=== PATIENT | male | born 1970 | race Caucasian/White ===

== ENCOUNTER 2023-04-23 15:28 | Emergency (ER) | payer OTHER, SELFPAY ==
[2023-04-23] VITALS (12 sets, daily range): BP systolic 113–143; BP diastolic 85–101; PULSE 84–100; RESP 10–84; TEMP 36.4; O2SAT 91–99; BMI 30.5
--- NOTE | 2023-04-23 16:12 | CRLHL7_ITS ---
For Patients: As a result of the Century Cures Act, medical imaging exams and procedure reports are released immediately into your electronic medical record. You may view this report before your referring provider. If you have questions, please contact your health care provider. INDICATION: Fever, shortness of breath TECHNIQUE: Chest 2 views. COMPARISON: None. FINDINGS: The lungs are symmetrically inflated and clear. The trachea is midline. The cardiac silhouette is normal. Bones and soft tissues are unremarkable. IMPRESSION: No acute cardiopulmonary findings. Dictated by Simon Forte MD @ 04/23/2023 6:12:13 PM (Electronically Signed)
--- NOTE | 2023-04-23 16:23 | ED.GENADULT ---
HPI - General Adult General Date Seen: 04/23/23 Chief complaint: Weakness Stated complaint: fever, flu like symptoms Time Seen by Provider: 04/23/23 15:59 Source: patient Mode of arrival: ambulatory Limitations: no limitations History of Present Illness HPI narrative: Patient is a 52 year old male with history of GERD and anxiety presenting to the emergency department for weakness, abdominal pain, flu-like symptoms. For yet that he saw the [facility] yesterday and tested negative for COVID/flu/RSV/strep. States the symptoms started about 21:30 2 days ago. He said since then he is having full body aches and nausea. He has not been eating or drinking anything because of the nausea. Has had some emesis but states he isn't vomiting anymore because it was nothing left in his stomach. Admits to diffuse abdominal discomfort. No previous abdominal surgeries. States he has been having watery diarrhea. Last time he was on antibiotics he states was 6 weeks ago. He did have COVID diagnosis on 03/25/2023. Denies chest pains, headache, numbness. States he has been having intermittent fevers and taking Tylenol and ibuprofen for that. Does admit to some mild shortness of breath. He also states he feels dehydrated and lightheaded. His urgent care provider from yesterday follow-up with him today and told him to come to the emergency department. Related Data Home Medications Medication Instructions Recorded Confirmed ferrous sulfate 137 mg (45 mg mg PO 03/26/23 04/22/23 iron) tablet,extended release multivitamin (Multiple Vitamins 1 tab PO QDAY 03/26/23 04/22/23 tablet) omeprazole 40 mg capsule,delayed 40 mg PO QDAY 03/26/23 04/22/23 release venlafaxine 75 mg capsule,extended 225 mg PO DAILY 03/26/23 04/22/23 release 24 hr Previous Rx's Medication Instructions Recorded fluticasone propionate 50 2 spray intranasal QDAY #16 grams 03/26/23 mcg/actuation nasal spray,suspension (Allergy Relief (fluticasone)) guaifenesin 1,200 mg tablet, 1,200 mg PO BID #60 tabs 03/26/23 extended release 12 hr Allergies Allergy/AdvReac Type Severity Reaction Status Date / Time Sulfa (Sulfonamide Allergy Mild Hives Verified 04/23/23 15:37 Antibiotics) Review of Systems Status of ROS: Reports: 10 or more systems reviewed and unremarkable except as noted in History and below [facility] Medical History History of deviated nasal septum ?Z87.09 - Personal history of other diseases of the respiratory system (ICD-10) Surgical History S/P nasal surgery ?Z98.890 - Other specified postprocedural states (ICD-10) H/O wisdom tooth extraction ?K08.409 - Partial loss of teeth, unspecified cause, unspecified class (ICD-10) Social History Smoking Status: Never smoker Exam Narrative: Exam Narrative: Const: Well-nourished, Well-developed, in mild distress Eyes: PERRL, no conjunctival injection, and symmetrical lids HENT: Atraumatic external nose and ears. Moist mucous membranes. Neck: Symmetric, trachea midline, No thyromegaly. CVS: RRR, No murmurs or gallops. Peripheral pulses 2+ and equal in all extremities RESP: Unlabored respiratory effort. Clear to auscultation bilaterally. GI: Mild diffuse abdominal tenderness, Nondistended, No rebound or guarding. MSK:Extremities w/o deformity, Normal Active ROM Skin: Warm, Dry. No rashes or lesions. Neuro: Normal Muscle tone, No focal neurological deficits. Psych: Awake, Alert, & Oriented x3. Appropriate mood and affect. Const: Vital Signs, click to edit/add: Vital Signs - 24 hr 04/23/23 15:33 04/23/23 16:45 04/23/23 16:46 Temperature 97.6 F Pulse Rate 92 Pulse Rate [Right Pulse Oximeter] 100 89 Respiratory Rate 20 18 Blood Pressure Blood Pressure [Ri ght Upper Arm] 143/88 H 139/100 H Pulse Oximetry 96 95 96 Oxygen Delivery Me thod Room Air Room Air 04/23/23 16:48 04/23/23 17:00 04/23/23 17:33 Temperature Pulse Rate 89 94 Pulse Rate [Right Pulse Oximeter] 92 Respiratory Rate 10 L 18 Blood Pressure 139/100 H 113/85 Blood Pressure [Ri ght Upper Arm] 128/101 H Pulse Oximetry 95 97 96 Oxygen Delivery Me thod Room Air 04/23/23 18:01 04/23/23 18:31 04/23/23 19:01 Temperature Pulse Rate 93 92 Pulse Rate [Right Pulse Oximeter] Respiratory Rate 18 18 84 H Blood Pressure 124/88 126/93 H 126/88 Blood Pressure [Ri ght Upper Arm] Pulse Oximetry 95 91 99 Oxygen Delivery Me thod 04/23/23 20:01 04/23/23 20:14 04/23/23 20:15 Temperature 97.6 F 97.6 F Pulse Rate 84 Pulse Rate [Right Pulse Oximeter] 84 84 Respiratory Rate 18 18 18 Blood Pressure 126/92 H Blood Pressure [Ri ght Upper Arm] 126/92 H 126/92 H Pulse Oximetry 97 97 Oxygen Delivery Me thod Room Air Course Vital Signs Vital signs: Initial Vital Signs Temperature 97.6 F 04/23/23 15:33 Temperature Source Temporal Artery Scan 04/23/23 15:33 Pulse Rate 100 04/23/23 15:33 Pulse Rhythm Regular 04/23/23 15:33 Pulse Strength 3+ Normal 04/23/23 15:33 Respiratory Rate 20 04/23/23 15:33 Blood Pressure 143/88 H 04/23/23 15:33 Blood Pressure Mean 106 H 04/23/23 15:33 Blood Pressure Position Sitting 04/23/23 15:33 Pulse Oximetry 96 04/23/23 15:33 Oxygen Delivery Method Room Air 04/23/23 15:33 Vital Signs Temperature 97.6 F 04/23/23 15:33 Pulse Rate 100 04/23/23 15:33 Respiratory Rate 20 04/23/23 15:33 Blood Pressure 143/88 H 04/23/23 15:33 Pulse Oximetry 96 04/23/23 15:33 Oxygen Delivery Method Room Air 04/23/23 15:33 Temperature 97.6 F 04/23/23 20:15 Pulse Rate 84 04/23/23 20:15 Respiratory Rate 18 04/23/23 20:15 Blood Pressure 126/92 H 04/23/23 20:15 Pulse Oximetry 97 04/23/23 20:14 Oxygen Delivery Method Room Air 04/23/23 20:14 Medications Administered Medications: Discontinued Medications Generic Name Dose Route Start Last Admin Trade Name Freq PRN Reason Stop Dose Admin Lactated Ringer's 1,000 mls @ 1,000 mls/hr 04/23/23 16:12 04/23/23 16:52 Lactated Ringers 1000 Ml IV 04/23/23 17:11 Not Given .Q1H ONE Sodium Chloride 1,000 mls @ 1,000 mls/hr 04/23/23 17:00 04/23/23 19:34 0.9 % Sodium Chloride 1000 Ml IV 04/23/23 17:59 Infused .Q1H ARNOLDO Infusion Ondansetron HCl 4 mg 04/23/23 16:12 04/23/23 16:52 Ondansetron 2 Mg/Ml Inj IVP 04/23/23 16:13 4 mg ONCE ONE Administration Medical Decision Making MDM Narrative Medical decision making narrative: Patient is a 52-year-old male presenting to emergency department for mild abdominal pain, diarrhea, chills and muscle legs. Symptoms appear to be of viral related will work him up further. He is having diarrhea but has not been on antibiotics and a while and only had a couple episodes today at this time had not believe it is necessary to test for C diff considering the high false-positive rate. Will check lipase for pancreatitis. Since he is having some mild shortness of breath we will order EKG, troponin, chest x-ray. I looking for signs of ACS, pneumonia, pneumothorax. Also ordered CBC and CMP. Patient was swabbed for COVID/ flu/RSV yesterday and refused to be wrist while today Lab work all returned showing no concerning abnormalities. He does a mildly elevated AST and ALT. CT scan showed colitis of the transverse and ascending colon. The there is no pancolitis which again makes me unlikely to think this is C diff. there is some mild hepatic steatosis. I spoke to him and his about this and informed them the follow-up with the primary care provider. Chest x-ray shows no concerning findings. Patient likely has a viral syndrome will be discharged home. He is agreeable with this plan. Lab Data Labs: Lab Results 04/23/23 04/23/23 Range/Units 16:13 16:25 WBC 10.53 (4.50-11.00) K/uL RBC 5.25 (4.30-5.90) m/uL Hgb 17.2 (13.5-17.5) gm/dL Hct 50.0 (37.0-53.0) % MCV 95 (80-100) fL MCH 33 (26-34) pg MCHC 34 (32-36) gm/dL RDW Coeff of Aster 12.1 (11.5-15.5) % Plt Count 199 (140-440) K/uL Neut % (Auto) 69.2 (42.0-72.0) % Lymph % (Auto) 14.7 L (20-44) % Emmet % (Auto) 15.4 H (0.0-11.0) % Eos % (Auto) 0.1 (0.0-7.0) % Baso % (Auto) 0.4 (0.0-3.0) % Neut # (Auto) 7.29 H (1.7-7.0) K/uL Lymph # (Auto) 1.50 (0.90-2.90) K/uL Emmet # (Auto) 1.60 H (0.00-0.90) K/UL Eos # (Auto) 0.01 (0.00-0.50) K/uL Baso # (Auto) 0.04 (0.00-0.30) K/uL Abs Immat Gran (auto) 0.02 (0.00-0.30) K/uL Imm/Tot Granulo (auto) 0.2 % Sodium 134 L (135-149) mmol/L Potassium 4.1 (3.6-5.1) mmol/L Chloride 98 (96-114) mmol/L Carbon Dioxide 29 (20-32) mmol/L Anion Gap 7 (7-15) mEq/L BUN 17 (7-30) mg/dL Creatinine 1.0 (0.5-1.5) mg/dL Estimated Creat Clear 92.69 Estimated GFR 89 ml/min Glucose 102 (60-115) mg/dL Calcium 8.9 (8.4-10.6) mg/dL Total Bilirubin 0.9 (0.1-1.5) mg/dL AST 39 H (12-35) U/L ALT 61 H (4-50) U/L Alkaline Phosphatase 40 (40-150) U/L Total Protein 7.4 (6.0-8.3) g/dL Albumin 4.4 (3.3-5.0) g/dL Lipase 52 (23-300) U/L POC Troponin I 0.00 L (0.01-0.04) ng/ml Imaging Data Chest x-ray: Radiologist's impression: No acute cardiopulmonary findings. Dictated by Simon Forte MD @ 04/23/2023 6:12:[address] abdomen and pelvis: Radiologist's impression: 1. [id number] diffuse mural thickening of the ascending and transverse colon, compatible with colitis, likely on the basis of an infectious or inflammatory process. 2. Hepatic steatosis. Please note that all CT scans at this facility use dose modulation, iterative reconstruction, and/or weight-based dosing when appropriate to reduce radiation dose to as low as reasonably achievable. Dictated by Gorge Henson MD @ 04/23/2023 7:35:51 PM ECG Data Attestation: I personally reviewed and interpreted this ECG as follows: Prior ECG tracings: not available for review Interpretation: Normal sinus rhythm with rate 91 beats per minute, normal intervals, normal axis, no ST or T-wave abnormalities. Discharge Plan Discharge Clinical Impression: Colitis Patient Disposition: Home, Self-Care Condition: Improved Instructions: Acute Diarrhea (ED) Additional Instructions: Your imaging shows you have colitis. If he continued to have diarrhea by Thursday follow-up with the primary care provider about possibly getting a C difficile test. Your liver enzymes are slightly elevated and the was some hepatic steatosis (fatty liver) seen on imaging. I recommend he also follow up with the primary care provider about this. I am not overly concerned about it at this time due to the very mild elevations but it would be good to talk to your doctor about this. You can cook pickled meat the Zofran from [employer]. Take it as directed Prescriptions: No Action venlafaxine 75 mg capsule,extended release 24hr 225 mg PO DAILY multivitamin [Multiple Vitamins] Tablet 1 tab PO QDAY ferrous sulfate 137 mg (45 mg iron) tablet extended release PO omeprazole 40 mg capsule,delayed release(DR/EC) 40 mg PO QDAY fluticasone propionate [Allergy Relief (fluticasone)] 50 mcg/actuation spray,suspension 2 spray intranasal QDAY Qty: 16 0RF Rx Instructions: administer into each nostril guaifenesin 1,200 mg tablet extended release 12hr 1,200 mg PO BID Qty: 60 0RF Follow Up/Referrals: Provider,Not a Local [Primary Care Provider] - Stand Alone Forms: MyHealth Info Instructions
[2023-04-23] MEDS: 0.9 % SODIUM CHLORIDE 1000 ml 1,000 ML IV (16:52)
[2023-04-23] MEDS: ONDANSETRON 2 MG/ML inj 4 MG IVP (16:52)
[2023-04-23 16:58] LABS: Basophils Absolute Auto 0.04 K/uL (0.00-0.30); Basophils Percent Auto 0.4 % (0.0-3.0); Eosinophils Absolute Auto 0.01 K/uL (0.00-0.50); Eosinophils Percent Auto 0.1 % (0.0-7.0); Hemoglobin* 17.2 gm/dL (13.5-17.5); Immature Granulocytes Abs Auto 0.02 K/uL (0.00-0.30); Immature Granulocytes Pct Auto 0.2 %; Lymphocytes Percent Auto 14.7 % (20-44); Mean Corpuscular HGB Conc 34 gm/dL (32-36); Mean Corpuscular Hemoglobin 33 pg (26-34); Mean Corpuscular Volume 95 fL (80-100); Monocytes Percent Auto 15.4 % (0.0-11.0); Neutrophils Absolute Auto 7.29 K/uL (1.7-7.0); Neutrophils Percent Auto 69.2 % (42.0-72.0); Platelet Count* 199 K/uL (140-440); RDW Coefficient of Variation % 12.1 % (11.5-15.5); Red Blood Count 5.25 m/uL (4.30-5.90); White Blood Count* 10.53 K/uL (4.50-11.00)
[2023-04-23 17:01] LABS: Albumin* 4.4 g/dL (3.3-5.0); Chloride* 98 mmol/L (96-114); Potassium* 4.1 mmol/L (3.6-5.1); Sodium* 134 mmol/L (135-149)
[2023-04-23 17:03] LABS: Est. Creatinine Clearance* 92.69; Estimated Glomerular Filt Rate 89 ml/min
[2023-04-23 17:04] LABS: Alanine Aminotransferase* 61 U/L (4-50); Alkaline Phosphatase* 40 U/L (40-150); Anion Gap 7 mEq/L (7-15); Aspartate Amino Transferase* 39 U/L (12-35); Bilirubin Total* 0.9 mg/dL (0.1-1.5); Blood Urea Nitrogen* 17 mg/dL (7-30); Carbon Dioxide* 29 mmol/L (20-32); Glucose* 102 mg/dL (60-115); Lipase* 52 U/L (23-300); Total Protein* 7.4 g/dL (6.0-8.3)
[2023-04-23 17:05] LABS: Calcium* 8.9 mg/dL (8.4-10.6)
--- NOTE | 2023-04-23 17:07 | CRLHL7_ITS ---
For Patients: As a result of the Century Cures Act, medical imaging exams and procedure reports are released immediately into your electronic medical record. You may view this report before your referring provider. If you have questions, please contact your health care provider. INDICATION: Diffuse abdominal discomfort, diarrhea TECHNIQUE: CT abdomen and pelvis acquired with 110 cc Isovue 370 IV contrast. Permanently recorded images are archived. COMPARISON: None. FINDINGS: Lower chest: Unremarkable. Liver: Diffuse fatty infiltration. Normal contour. No suspicious mass. Gallbladder and bile ducts: Unremarkable. No stones or inflammation. No biliary dilatation. Pancreas: Unremarkable. No mass or inflammation. Spleen: Unremarkable. Normal in size. No masses. Adrenal glands: Unremarkable. No nodules. Kidneys, Ureters, and Bladder: Unremarkable. No suspicious masses, stones, or hydronephrosis. Unremarkable ureters and bladder. GI tract: [id number]-[id number] diffuse mural thickening of the ascending and transverse colon. No obstruction. No pneumatosis. Normal appendix. Vasculature: Abdominal aorta is normal in caliber. Mesenteric arteries are patent. Lymph nodes: No lymphadenopathy. Peritoneum/Abdominal Wall: Unremarkable. No free air or significant free fluid. Pelvis: Unremarkable. Bones: Unremarkable for age. IMPRESSION: 1. Aeag-tg-[id number] diffuse mural thickening of the ascending and transverse colon, compatible with colitis, likely on the basis of an infectious or inflammatory process. 2. Hepatic steatosis. Please note that all CT scans at this facility use dose modulation, iterative reconstruction, and/or weight-based dosing when appropriate to reduce radiation dose to as low as reasonably achievable. Dictated by Gorge Henson MD @ 04/23/2023 7:35:51 PM (Electronically Signed)
[2023-04-23 17:08] LABS: Slide Review Reflex No
== END 2023-04-23 20:16 | disposition home or self-care (01) ==
PROVIDERS: Emergency Provider Student in an Organized Health Care Education/Training Program
DX: K52.9 Noninfective gastroenteritis and colitis, unspecified (principal)
CPT/HCPCS: 36415; 71046; 74177; 80053; 83690; 84484; 85025; 93005; 96361; 96374; 99283; 99284; 99285; J2405; J7030; Q9967